=== PATIENT | male | born 1990 | race Two or more races ===

== ENCOUNTER 2019-07-03 12:00 | Emergency (ER) | payer OTHER ==
[~2019-07-03] VITALS: Ht 172.7 cm; Wt 99.8 kg
[2019-07-03 12:12] VITALS: BP 134/82
[2019-07-03] MEDS ORDERED: LIDOCAINE 1% HCL (LOCAL ANESTH.) INJ 20ML MDV ONE (13:01)
[2019-07-03] MEDS ORDERED: LIDOCAINE 1% HCL (LOCAL ANESTH.) INJ 20ML MDV ID ONE (13:15)
== END 2019-07-03 13:33 | disposition home or self-care (01) ==
LOC: ER 12:00
DX: S60.352A Superficial foreign body of left thumb, initial encounter (principal); S56.312A Strain of extensor or abductor muscles, fascia and tendons of left thumb at forearm level, initial encounter; W45.0XXA Nail entering through skin, initial encounter; Y93.89 Activity, other specified; Y92.89 Other specified places as the place of occurrence of the external cause; Y99.8 Other external cause status
CPT/HCPCS: 73130; 99283; J2001